=== PATIENT | male | born 1940 | race Caucasian/White ===

== ENCOUNTER 2019-07-08 08:44 | Inpatient (IN) | payer OTHER ==
[~2019-07-08] VITALS: Ht 181.6 cm; Wt 88.6 kg
[2019-07-08 08:46] VITALS: Ht 181.6 cm; Wt 88.6 kg
[2019-07-08 09:23] LABS: BASOPHIL % 1.2 % (0-2); PLATELET COUNT 142 x10^3mcL (130-400)
[2019-07-08 09:37] LABS: CALCIUM 10.1 mg/dL (8.5-10.1); CHLORIDE SERUM 105 mmol/L (98-107); CREATININE SERUM 1.3 mg/dL (0.7-1.3); GLUCOSE SERUM 108 mg/dL (74-106); SODIUM SERUM 142 mmol/L (136-145)
[2019-07-08 09:41] LABS: ALBUMIN 3.8 g/dL (3.4-5.0); ALKALINE PHOSPHATASE 52 U/L (46-116); ALT/SGPT 21 U/L (16-63); AST/SGOT 12 U/L (15-37); HDL CHOLESTEROL 42 mg/dL (40-60); LIPASE 74 IU/L (73-393); TOTAL PROTEIN, SERUM 7.4 g/dL (6.4-8.2); TRIGLYCERIDES 42 mg/dL (<150)
[2019-07-08 09:42] LABS: CHOLESTEROL 118 mg/dL (<200); CHOLESTEROL/HDL RATIO 2.8
[2019-07-08 09:49] LABS: FREE T4 0.97 ng/dL (0.76-1.46); FREE THYROXINE INDEX 2.2 ug/dL (1.4-4.5); T4(THYROXINE) 6.1 ug/dL (4.7-13.3)
[2019-07-08 09:53] LABS: microscopic required? NO
[2019-07-08 10:00] LABS: UA SPECIFIC GRAVITY 1.015 (1.005-1.035); urine erythrocyte NEGATIVE (NEGATIVE)
[2019-07-08 10:15] LABS: T3 TOTAL 0.83 ng/mL
[2019-07-08] MEDS ORDERED: PRO2 PO (12:27)
[2019-07-08] MEDS ORDERED: UROXATRAL10 M2 PO (12:27)
[2019-07-08] MEDS ORDERED: ADV250/50 (12:27)
[2019-07-08] MEDS ORDERED: ELIQUIS5 MG PO (12:28)
[2019-07-08] MEDS ORDERED: LASIX40 MG PO (12:28)
[2019-07-08] MEDS ORDERED: BELSOMRA20 MG PO (12:28)
[2019-07-08] MEDS ORDERED: PROAIR HFA8.5 GM INH (12:29)
[2019-07-08] MEDS ORDERED: MIDODRINE HCL10 MG PO (12:29)
[2019-07-08] MEDS ORDERED: TOPROL XL25 MG PO (12:29)
[2019-07-08] MEDS ORDERED: BONIVA150 M1 PO (12:29)
[2019-07-08] MEDS ORDERED: ALD25 PO (12:29)
[2019-07-08 13:51] LABS: MAGNESIUM 2.7 mg/dL (1.8-2.4); PHOSPHOROUS 3.8 mg/dL (2.5-4.9)
[2019-07-08 13:52] VITALS: BP 94/61
[2019-07-08 16:15] VITALS: BP 91/55
[2019-07-08 20:30] VITALS: BP 92/64
[2019-07-09 05:55] VITALS: BP 91/64
[2019-07-09 06:02] LABS: BASOPHIL % 0.3 % (0-2); RED CELL DISTRIBUTION WIDTH 14.4 % (11.5-14.5)
[2019-07-09 06:22] LABS: PLATELET COUNT 128 x10^3mcL (130-400)
[2019-07-09 06:53] LABS: CALCIUM 9.9 mg/dL (8.5-10.1); CARBON DIOXIDE 26.9 mmol/L (21-32); CHLORIDE SERUM 104 mmol/L (98-107); CREATININE SERUM 1.3 mg/dL (0.7-1.3); GLUCOSE SERUM 96 mg/dL (74-106); POTASSIUM SERUM 5.1 mmol/L (3.5-5.1); SODIUM SERUM 138 mmol/L (136-145)
[2019-07-09 08:22] VITALS: BP 93/63
[2019-07-09] MEDS ORDERED: DARIFENACIN ER15 MG PO (14:09)
[2019-07-09 17:08] VITALS: BP 101/70
[2019-07-09 20:03] VITALS: BP 107/73
[2019-07-10 05:31] VITALS: BP 105/72
[2019-07-10 07:28] LABS: C REACTIVE PROTEIN 11.5 mg/dL (<=0.9); CALCIUM 9.8 mg/dL (8.5-10.1); CARBON DIOXIDE 22.8 mmol/L (21-32); CHLORIDE SERUM 102 mmol/L (98-107); CREATININE SERUM 1.5 mg/dL (0.7-1.3); GLUCOSE SERUM 137 mg/dL (74-106); POTASSIUM SERUM 5.3 mmol/L (3.5-5.1); SODIUM SERUM 136 mmol/L (136-145)
[2019-07-10 08:47] VITALS: BP 101/69
[2019-07-10 12:18] VITALS: BP 106/78
[2019-07-10 17:34] VITALS: BP 108/69
[2019-07-10 19:05] VITALS: BP 108/69
[2019-07-10 20:26] VITALS: BP 97/61
== END 2019-07-10 21:08 | disposition short-term general hospital (02) | DRG 291 ==
LOC: ED 08:44 → DU 11:56
PROVIDERS: Specialist; ADMIT Family Medicine
PROC: 4B02XTZ Measurement of Cardiac Defibrillator, External Approach (ICD-10-PCS; principal; 2019-07-09)
PROC: 0Y9N0ZZ Drainage of Left Foot, Open Approach (ICD-10-PCS; 2019-07-10)
DX: I50.23 Acute on chronic systolic (congestive) heart failure (principal); J96.20 Acute and chronic respiratory failure, unspecified whether with hypoxia or hypercapnia; L03.116 Cellulitis of left lower limb; I42.8 Other cardiomyopathies; N17.9 Acute kidney failure, unspecified; E87.2 Acidosis; I95.89 Other hypotension; E86.0 Dehydration; I48.91 Unspecified atrial fibrillation; F41.9 Anxiety disorder, unspecified; J45.909 Unspecified asthma, uncomplicated; W18.39XA Other fall on same level, initial encounter; N18.9 Chronic kidney disease, unspecified; Z95.810 Presence of automatic (implantable) cardiac defibrillator; Y93.89 Activity, other specified; Y92.012 Bathroom of single-family (private) house as the place of occurrence of the external cause; Z79.01 Long term (current) use of anticoagulants; Z87.891 Personal history of nicotine dependence; Z88.1 Allergy status to other antibiotic agents; Z88.8 Allergy status to other drugs, medicaments and biological substances; Z86.73 Personal history of transient ischemic attack (TIA), and cerebral infarction without residual deficits; Z79.899 Other long term (current) drug therapy
CPT/HCPCS: 36600; 83880; 84439; G0378; J0456; J1200; J1940; J2001; J2270; J2405; J3370; J7030; J7620; Q0092